=== PATIENT | male | born 1955 | race Caucasian/White ===

== ENCOUNTER → 2023-08-21 08:55 | Outpatient (CLI) | payer MEDICARE, OTHER, SELFPAY ==
--- NOTE | 2023-08-21 09:03 | DI.RAD.S_ITS ---
PROCEDURE: XR SHOULDER RT MIN 2V INDICATIONS: right shoulder pain TECHNIQUE: 3 views of the shoulder were acquired. COMPARISON: None. FINDINGS: Bones: No fractures or dislocations. No suspicious bony lesions. Visualized ribs appear intact. Moderate to severe acromioclavicular and glenohumeral degenerative narrowing. Soft tissues: No suspicious soft tissue calcifications. IMPRESSION: Acromioclavicular and glenohumeral arthritic change. Dictated by: Kenya Rahman M.D. on 08/21/2023 at 13:15 Approved by: Kenya Rahman M.D. on 08/21/2023 at 13:16
== END ==
PROVIDERS: PCP Nurse Practitioner; Referring Provider Anesthesiology; Visit Provider Anesthesiology
DX: M25.511 Pain in right shoulder (principal); M79.621 Pain in right upper arm
CPT/HCPCS: 73030; 99214